=== PATIENT | female | born 1985 | race Caucasian/White ===

== ENCOUNTER 2018-01-20 18:34 | Day surgery (SDC) | payer BC ==
--- NOTE | 2018-01-20 19:14 | EDM.PDOC ---
ED HPI GENERAL MEDICAL PROBLEM - General Chief Complaint: ENT Problem Stated Complaint: FISH BONE STUCK IN THROAT Time Seen by Provider: 01/20/18 18:57 Source of Information: Reports: Patient, Family () History Limitations: Reports: No Limitations - History of Present Illness INITIAL COMMENTS - FREE TEXT/NARRATIVE: The patient states that she ate walleye fish when she went out to dinner last night, 01/19/2018. The fish contained bones. She did not have any problem while eating, but when she got home around 21:00, she had the sensation of a foreign body stuck in her upper left throat. The sensation was still there this morning , albeit somewhat lower. She states that she has tried olive oil, marshmallows, and peanut butter, with no relief. No prior similar symptoms. The patient's last oral solid food was around 17:30. The patient does not have a PCP. Her Research Chef is Dr. Ward. Throat Pain Score (Numeric/FACES): 1 - Related Data Allergies Allergy/AdvReac Type Severity Reaction Status Date / Time No Known Allergies Allergy Verified 05/01/14 14:43 Home Meds: Home Meds . [No Known Home Meds] 01/20/18 [History] Past Medical History HEENT History: Reports: Allergic Rhinitis - Past Surgical History HEENT Surgical History: Reports: Oral Surgery ([place] teeth extraction. Gingival graft.) Social & Family History - Tobacco Use Smoking Status *Q: Never Smoker Second Hand Smoke Exposure: No - Alcohol Use Alcohol Use History: Yes Days Per Week of Alcohol Use: 0 Alcohol Use Frequency: Socially - Recreational Drug Use Recreational Drug Use: No - Living Situation & Occupation Living situation: Reports: , with Spouse, with Family (3 kids) ED ROS ENT - Review of Systems Review Of Systems: ROS reveals no pertinent complaints other than HPI. ED EXAM, ENT - Physical Exam Exam: See Below Exam Limited By: No Limitations General Appearance: Alert, WD/WN, No Apparent Distress Eye Exam: Bilateral Eye: Normal Inspection Ears: Normal External Exam, Hearing Grossly Normal Nose: Normal Inspection, No Blood Mouth/Throat: Normal Inspection, Normal Gums, Normal Lips, Normal Oropharynx, Normal Teeth Head: Atraumatic, Normocephalic Neck: Normal Inspection, Supple, Non-Tender, Full Range of Motion. No: Lymphadenopathy (L), Lymphadenopathy (R) Course - Vital Signs Last Recorded V/S: Last Vital Signs Temp 36.9 C 01/20/18 23:30 Pulse 74 01/20/18 23:15 Resp 16 01/20/18 23:30 BP 123/81 01/20/18 23:30 Pulse Ox 98 01/20/18 23:30 - Orders/Labs/Meds Orders: Active Orders 24 hr Category Date Time Status Communication Order [RC] ROUTINE Care 01/20/18 22:15 Active Cooling Warming Measures [RC] ASDIRECTED Care 01/20/18 22:15 Active Notify Provider [RC] ASDIRECTED Care 01/20/18 22:15 Active Oxygen Therapy [RC] ASDIRECTED Care 01/20/18 22:15 Active Pulse Oximetry [RC] ASDIRECTED Care 01/20/18 22:15 Active Ready for Discharge [RC] PER UNIT ROUTINE Care 01/20/18 23:06 Active Vital Signs [RC] Q15M Care 01/20/18 22:15 Active Neck Soft Tissue [CR] Stat Exams 01/20/18 19:08 Taken HCG QUALITATIVE,URINE [URCHEM] Stat Lab 01/20/18 22:00 Ordered Schedule Procedure [COMM] Urgent Oth 01/20/18 21:41 Ordered Labs: Laboratory Tests 01/20/18 Range/Units 22:00 Urine HCG, Qual Negative (NEGATIVE) Meds: Medications Discontinued Medications Generic Name Dose Route Start Last Admin Trade Name Palq PRN Reason Stop Dose Admin Fentanyl Confirm 01/20/18 21:34 Sublimaze Administered 01/20/18 21:35 Dose 100 mcg .ROUTE .STK-MED ONE Fentanyl 50 mcg 01/20/18 22:15 Sublimaze IVPUSH Q5M PRN Pain Lactated Ringer's Confirm 01/20/18 21:21 01/20/18 21:42 Ringers, Lactated Administered 01/20/18 21:22 50 mls/hr Dose Administration 1,000 mls @ as directed .ROUTE .STK-MED ONE Lidocaine HCl Confirm 01/20/18 21:34 Xylocaine-Mpf 1% Administered 01/20/18 21:35 Dose 4 mls @ as directed .ROUTE .STK-MED ONE Midazolam HCl Confirm 01/20/18 21:35 Versed 1 Mg/Ml Administered 01/20/18 21:36 Dose 2 mg .ROUTE .STK-MED ONE Ondansetron HCl 4 mg 01/20/18 22:15 Zofran IVPUSH ONETIME PRN Nausea/Vomiting Propofol Confirm 01/20/18 21:34 Diprivan 20 Ml Administered 01/20/18 21:35 Dose 200 mg .ROUTE .STK-MED ONE Succinylcholine Chloride Confirm 01/20/18 22:06 Succinylcholine In Ns Pf Administered 01/20/18 22:07 Dose 100 mg .ROUTE .STK-MED ONE - Re-Assessments/Exams Free Text/Narrative Re-Assessment/Exam: 01/20/18 19:35 2-view radiographs of the soft tissue of the neck appear to be normal. No foreign body, such as a fishbone, identified. Formal read per the Radiologist pending. 01/20/18 19:[address] Oates at 19:40. He will come to the ED to evaluate the patient. 01/20/18 21:05 Dr. Oates has evaluated the patient and will take her to the OR [facility] for upper endoscopy. Departure - Departure Time of Disposition: 21:05 Disposition: DC/Tfer to Critical Access 66 Condition: Good Clinical Impression: Foreign body sensation in throat - Discharge Information - My Orders Last 24 Hours: My Active Orders 01/20/18 19:08 Neck Soft Tissue [CR] Stat - Assessment/Plan Last 24 Hours: My Active Orders 01/20/18 19:08 Neck Soft Tissue [CR] Stat
[2018-01-20] MEDS ORDERED: Lactated Ringers 1,000 ML IV SCH (21:21)
[2018-01-20] MEDS ORDERED: Lactated Ringers 1,000 ML ONE (21:21)
--- NOTE | 2018-01-20 21:22 | PCM.PREANE ---
Preanesthetic Assessment - Anesthesia/Transfusion/Family Hx Anesthesia History: Prior Anesthesia Without Reaction Family History of Anesthesia Reaction: No Transfusion History: No Prior Transfusion(s) Intubation History: Unknown - Review of Systems General: No Symptoms Pulmonary: No Symptoms Cardiovascular: Palpitations (occasional) Gastrointestinal: No Symptoms (Gerd on occasion with spicy food) Neurological: Headache (cluster/sinus headaches), Numbness (right leg from vein stripping surgery) Other: Reports: Sinus Problem (allergic rhinitis) - Physical Assessment NPO Status Date: 01/20/18 NPO Status Time: 17:30 Pulse: 79 O2 Sat by Pulse Oximetry: 99 Respiratory Rate: 18 Blood Pressure: 119/91 Temperature: 36.8 C Vital Signs: Last Vital Signs Temp 36.8 C 01/20/18 18:40 Pulse 79 01/20/18 18:40 Resp 18 01/20/18 18:40 BP 119/91 H 01/20/18 18:40 Pulse Ox 99 01/20/18 18:40 Height: 1.78 m Weight: 68.039 kg ASA Class: 1E Mental Status: Alert & Oriented x3 Airway Class: Mallampati = 2 Dentition: Reports: Normal Dentition, Caries Thyro-Mental Finger Breadths: 3 Mouth Opening Finger Breadths: 3 ROM/Head Extension: Full Lungs: Clear to Auscultation, Normal Respiratory Effort Cardiovascular: Regular Rate, Regular Rhythm, No Murmurs - Allergies Allergies/Adverse Reactions: Allergies Allergy/AdvReac Type Severity Reaction Status Date / Time No Known Allergies Allergy Verified 05/01/14 14:43 - Anesthesia Plan Pre-Op Medication Ordered: None - Acknowledgements Anesthesia Type Planned: General Anesthesia, MAC Pt an Appropriate Candidate for the Planned Anesthesia: Yes Alternatives and Risks of Anesthesia Discussed w Pt/Guardian: Yes Pt/Guardian Understands and Agrees with Anesthesia Plan: Yes PreAnesthesia Questionnaire HEENT History: Reports: Allergic Rhinitis - Past Surgical History HEENT Surgical History: Reports: Oral Surgery ([place] teeth extraction. Gingival graft.) - SUBSTANCE USE Smoking Status *Q: Never Smoker Second Hand Smoke Exposure: No Days Per Week of Alcohol Use: 0 Recreational Drug Use History: No - HOME MEDS Home Medications: Home Meds . [No Known Home Meds] 01/20/18 [History] - CURRENT (IN HOUSE) MEDS Current Meds: Current Medications Discontinued Medications Lactated Ringer's (Ringers, Lactated) Confirm Administered Dose 1,000 mls @ as directed .ROUTE .[facility] ONE Stop: 01/20/18 21:22
--- NOTE | 2018-01-20 21:24 | PCM.HP ---
H&P History of Present Illness - General Date of Service: 01/20/18 Admit Problem/Dx: rule out esophageal foreign body Source of Information: Patient History Limitations: Reports: No Limitations - History of Present Illness Initial Comments - Free Text/Narative: 32 yo female, presents with a sensation of a foreign body in her esophagus, which has been present since last night after eating fish. She notes that pain was initially in the LEFT neck region, but has moved to midline. Pain is mild, rated 2/10. She has been able to swallow her own saliva and also swallow food, without difficulty. She attempted eating marshmallow to help remedy the problem , but no changes in symptoms. Swallowing doesn't make the pain worse. No prior history of swallowing problems. Denies nausea/emesis. Denies CP/SOB/cough. Her last meal was at 12:30 PM today (over 8 hours ago). She did have a marshmallow at 5 PM (4 hours ago). Throat Pain Score (Numeric/FACES): 1 - Related Data Allergies/Adverse Reactions: Allergies Allergy/AdvReac Type Severity Reaction Status Date / Time No Known Allergies Allergy Verified 05/01/14 14:43 Home Medications: Home Meds . [No Known Home Meds] 01/20/18 [History] Past Medical History HEENT History: Reports: Allergic Rhinitis - Past Surgical History HEENT Surgical History: Reports: Oral Surgery ([place] teeth extraction. Gingival graft (1 year ago).) Dermatological Surgical History: Reports: Other (See Below) (Removal of skin lump from RIGHT thigh) - History Comment History Comment: She takes daily OCP. Social & Family History - Tobacco Use Smoking Status *Q: Never Smoker Second Hand Smoke Exposure: No - Caffeine Use Caffeine Use: Reports: Coffee - Alcohol Use Alcohol Use History: Yes Days Per Week of Alcohol Use: 0 (rare use) - Recreational Drug Use Recreational Drug Use: No - Living Situation & Occupation Living situation: Reports: , with Spouse, with Family (3 kids) H&P Review of Systems - Review of Systems: Review Of Systems: See Below General: Reports: No Symptoms Pulmonary: Reports: No Symptoms Cardiovascular: Reports: No Symptoms Gastrointestinal: Reports: No Symptoms Musculoskeletal: Reports: No Symptoms Neurological: Reports: No Symptoms Exam - Exam Exam: See Below - Vital Signs Vital Signs: Last Vital Signs Temp 36.8 C 01/20/18 18:40 Pulse 79 01/20/18 18:40 Resp 18 01/20/18 18:40 BP 119/91 H 01/20/18 18:40 Pulse Ox 99 01/20/18 18:40 Weight: 68.039 kg - Exam General: Alert, Oriented, Cooperative. No: Mild Distress HEENT: Conjunctiva Clear Neck: Supple, Trachea Midline. No: Lymphadenopathy Lungs: Clear to Auscultation, Normal Respiratory Effort Cardiovascular: Regular Rate, Regular Rhythm, Normal S1, Normal S2 GI/Abdominal Exam: Soft, Non-Tender Extremities: Normal Inspection Skin: Warm, Dry Psychiatric: Alert, Normal Affect, Normal Mood - Problem List (1) Esophageal foreign body SNOMED Code(s): 17684955 ICD Code: T18.108A - UNSP FOREIGN BODY IN ESOPHAGUS CAUSING OTH INJURY, INIT Status: Acute Current Visit: Yes Qualifiers: Encounter type: initial encounter Qualified Code(s): T18.108A - Unspecified foreign body in esophagus causing other injury, initial encounter Problem List Initiated/Reviewed/Updated: Yes Orders Last 24hrs: Active Orders 24 hr Category Date Time Status Neck Soft Tissue [CR] Stat Exams 01/20/18 19:08 Taken Assessment/Plan Comment:: Mrs. Angeles (pronounced "[id number]") is a 32 yo female, otherwise healthy, who presents with possible esophageal foreign body (fish bone). No concern for esophageal perforation at this time. No obvious bone on cervical spine plain film. - Recommend endoscopy to further evaluate, with possible removal of esophageal foreign body. Indications, risks, and benefits were discussed in detail. Risks include bleeding, infection, damage to the gastrointestinal tract, aspiration, and need for additional procedures. - Plan to perform under general anesthesia with intubation to protect the airway. - Obtain urine hCG, which was negative. Dev Jean M.D., F.A.C.S. General Surgery Pager: [phone]
[2018-01-20] MEDS ORDERED: Propofol 200 MG/20 ML SDV ONE (21:34)
[2018-01-20] MEDS ORDERED: Lidocaine 1% 4 ML ONE (21:34)
[2018-01-20] MEDS ORDERED: fentaNYL 100 MCG/2 ML SDV ONE (21:34)
[2018-01-20] MEDS ORDERED: Midazolam 1 MG/ML 2 ML SDV ONE (21:35)
[2018-01-20] MEDS ORDERED: Succinylcholine/Normal Saline 100 MG/5 ML Syringe ONE (22:06)
[2018-01-20] MEDS ORDERED: fentaNYL 100 MCG/2 ML SDV IVPUSH PRN (22:15)
[2018-01-20] MEDS ORDERED: Ondansetron 4 MG/2 ML SDV IVPUSH PRN (22:15)
--- NOTE | 2018-01-20 22:48 | PCM.POSTAN ---
POST ANESTHESIA ASSESSMENT - MENTAL STATUS Mental Status: Alert - VITAL SIGNS Pulse Rate: 90 SaO2: 98 Resp Rate: 8 Blood Pressure: 125/79 Temperature: 36.9 C - RESPIRATORY Respiratory Status: Respiratory Rate WNL, Airway Patent, O2 Saturation Stable - CARDIOVASCULAR CV Status: Pulse Rate WNL, Blood Pressure Stable - GASTROINTESTINAL GI Status: No Symptoms - POST OP HYDRATION Hydration Status: Adequate & Stable
--- NOTE | 2018-01-20 22:55 | PCM.PRGIU ---
Upper GI Endoscopy Procedure - Diagnosis (1) S/P endoscopy Current Visit: Yes Status: Acute SNOMED Code(s): 368967872, [id number], [id number] Upper GI Endoscopy: Esophagogastroduodenoscopy (EGD) (Upper endoscopy with esophagoscopy and gastroscopy) Procedure Comments:: The scope was advanced through the mouth, through the esophagus, and into the stomach. There was no evidence of abnormalities in the stomach. There were no foreign bodies seen in the esophagus. There was no evidence of esophageal injury. Photos were taken and printed. Dev Jean M.D., F.A.C.S. General Surgery Pager: [phone] Performed By:: Dev Jean Referred By:: Edgar Duvall Date of Service:: 01/20/18 Informed Consent Obtained?: Yes Indications:: Reports: UGI Foreing Body (Concern for esophageal foreign body ( fish bone)) Sedation:: Reports: Anesthesia (GETA by anesthesia) - Findings Esophagus:: Reports: Normal Stomach:: Reports: Normal - Interventions Cauterization:: Reports: None Foreign body removal:: Reports: None (No evidence of esophageal foreign body. No evidence of esophageal injury.) Biopsy:: Reports: None Polypectomy:: Reports: None Complications:: Reports: None Cultures:: Reports: None - Follow-up Follow-Up:: May follow-up as needed in the General Surgery clinic at [facility]
--- NOTE | 2018-01-20 22:56 | PCM48HPAN ---
Post Anesthesia Note - EVALUATION WITHIN 48HRS OF ANESTHETIC Vital Signs in Normal Range: Yes Patient Participated in Evaluation: Yes Respiratory Function Stable: Yes Airway Patent: Yes Cardiovascular Function Stable: Yes Hydration Status Stable: Yes Pain Control Satisfactory: Yes Nausea and Vomiting Control Satisfactory: Yes Mental Status Recovered: Yes
[2018-01-20 23:54] VITALS: BP 123/81
--- NOTE | 2018-01-21 07:04 | CR ---
Soft tissue neck: Two views of the neck were obtained. Comparison: No previous study. Epiglottis is normal. Aryepiglottic folds are normal. Prevertebral soft tissues are within normal limits. Small calcification within the ligamentum nuchal is seen which is incidental. Cervical spine appears within normal limits. Two small curvilinear calcifications are seen within the supraglottic region and difficult to exclude minimal foreign body versus laryngeal calcification. Impression: 1. Two small curvilinear calcifications within the supraglottic region as noted above. 2. Two-view soft tissue neck exam is otherwise unremarkable. Diagnostic code #3
--- NOTE | 2018-01-22 11:41 | PCM.SN ---
- Free Text/Narrative Note: Patient is s/p upper endoscopy to evaluate for esophageal foreign body, Post- procedure day #2. Patient called the hospital to report persistent sore throat. I called the patient to discuss her symptoms over the phone. Patient is concerned about her sore throat, which is different in nature than from prior to the procedure. She reports pain in the back of her throat and also neck pain. She also reports some chest tightness, which is somewhat improved from yesterday. She has been using vitamin C lozenges to relieve her symptoms. She also reports a few cuts on her lips with some lip swelling. I explained that her symptoms are most likely related to mild trauma during the intubation process and upper endoscopy procedure. Low concern for an esophageal perforation at this time. However, will obtain a CXR to confirm no pleural effusion or pulmonary disease. I reassured her that there is no concern for retained fish bone, as there was no evidence of a foreign body on endosocpy. I will give her a prescription for Cepacol lozenges for symptomatic relief. She may also use OTC ibuprofen/acetaminophen PRN. If symptoms worsen or persistent over the next several days, recommend return tot he hospital.
== END 2018-01-20 23:44 | disposition home or self-care (01) ==
LOC: JD.ED 18:34 → JD.SDS 21:17
PROVIDERS: ATTEND Student in an Organized Health Care Education/Training Program
DX: T18.108A Unspecified foreign body in esophagus causing other injury, initial encounter (principal)
CPT/HCPCS: 43235; 70360; 81025; 99285; J0330; J2250; J3010; J7120; 99284; J2704

== ENCOUNTER 2021-06-23 15:46 | Emergency (ER) | payer BC ==
[2021-06-23 16:26] VITALS: BP 162/90; PULSE 75
[2021-06-23] MEDS ORDERED: Bupivacaine 0.5% 10 ML SDV INJECT ONE (16:42)
--- NOTE | 2021-06-23 16:46 | EDM.PDOC ---
ED HPI GENERAL MEDICAL PROBLEM - General Chief Complaint: Upper Extremity Injury/Pain Stated Complaint: SLIVER UNDER THUMBNAIL Time Seen by Provider: 06/23/21 16:41 Source of Information: Reports: Patient, Family (spouse) History Limitations: Reports: No Limitations - History of Present Illness INITIAL COMMENTS - FREE TEXT/NARRATIVE: 36-year-old female presents to the ED with a sliver coming off a piece of deck that she was sanding wedged underneath her left thumbnail from distal aspect down to the nail matrix. attempted to remove it with a fingernail clipper but was unable to get a hold of the sliver. Injury occurred about 2 hours ago. Onset: Today, Sudden Onset Date: 06/23/21 Onset Time: 14:45 Duration: Minutes: Location: Reports: Upper Extremity, Left (Large wooden sliver underneath her left thumbnail) Quality: Reports: Ache, Throbbing Severity: Moderate Improves with: Reports: None (7 6 or 7 out of 10) Worsens with: Reports: None Context: Reports: Other (While sending a deck piece of wood broke off and went underneath her left thumbnail). 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: Reports: Other (see below) (None.) Left Finger-Thumb Pain Score (Numeric/FACES): 10 - Related Data Allergies Allergy/AdvReac Type Severity Reaction Status Date / Time No Known Allergies Allergy Verified 05/01/14 14:43 Home Meds: Home Meds cephALEXin [Keflex] 500 mg PO Q8H #15 cap 06/23/21 [Rx] norgestrel-ethinyl estradioL [Elinest-28 Tablet] 1 tab PO DAILY 06/23/21 [History] Past Medical History HEENT History: Reports: Allergic Rhinitis - Past Surgical History HEENT Surgical History: Reports: Oral Surgery Dermatological Surgical History: Reports: Other (See Below) - History Comment History Comment: She takes daily OCP. Social & Family History - Tobacco Use Tobacco Use Status *Q: Never Tobacco User - Caffeine Use Caffeine Use: Reports: Coffee - Recreational Drug Use Recreational Drug Use: No - Living Situation & Occupation Living situation: Reports: , with Spouse, with Family (3 kids) Review of Systems - Review of Systems Review Of Systems: See Below Constitutional: Reports: No Symptoms Eyes: Reports: No Symptoms Ears: Reports: No Symptoms Nose: Reports: No Symptoms Mouth/Throat: Reports: No Symptoms Respiratory: Reports: No Symptoms Cardiovascular: Reports: No Symptoms GI/Abdominal: Reports: No Symptoms Genitourinary: Reports: No Symptoms Musculoskeletal: Reports: No Symptoms Skin: Reports: No Symptoms Neurological: Reports: No Symptoms Psychiatric: Reports: No Symptoms ED EXAM, GENERAL - Physical Exam Exam: See Below Exam Limited By: No Limitations General Appearance: Alert, Mild Distress, Other (Temperature is 36.3 degrees. Heart rate 75 and sinus respiratory is 20 with pulse ox of 100% room air. BP 162/90) Eye Exam: Bilateral Eye: Normal Inspection Extremities: Other (Section of her left thumb reveals a piece of wood i.e. sliver that is entered from the distal aspect of the nail and is traveled all the way down the nail matrix to the base of the thumbnail on the radial aspect. Part of the nail has been removed with a clipper by but unable to remove the s) Neurological: Alert ( 2 hours.), Oriented, CN II-XII Intact, Normal Cognition Psychiatric: Anxious, Other (In a lot of discomfort.) Skin Exam: Warm, Dry, Intact, Normal Color, No Rash ED TRAUMA EXTREMITY PROCEDURES - Foreign Body Removal Indication:: Large wood sliver embedded subungual aspect of her left ulnar aspect of her thumb. Attempts by her to remove it failed. He is clipped away a good portion of the distal aspect of the fingernail. The sliver is therefore not exposed enough to be able to grasp with sliver forceps. Consent Obtained: Patient Performing Doctor:: Ricky Pires (Under digital block using bupivacaine 0.5% I will have to wedge resect the ulnar aspect of the fingernail to be able to remove the wood sliver) Foreign Body Other Location Comment:: Large wood sliver subungual aspect of left thumbnail Anesthesia Type: Regional (Digital block using bupivacaine 0.5%) Findings:: I was able to resect most of the ulnar aspect of her thumbnail with a 15 blade and with a good deal of difficulty able to remove the wooden sliver which came out in bits and pieces. Complications:: No Course - Vital Signs Last Recorded V/S: Last Vital Signs Temp 36.3 C 09/05/21 16:24 Pulse 75 06/23/21 16:24 Resp 20 06/23/21 16:24 BP 162/90 H 06/23/21 16:24 Pulse Ox 100 06/23/21 16:24 - Orders/Labs/Meds Meds: Medications Discontinued Medications Generic Name Dose Route Start Last Admin Trade Name Erwin PRN Reason Stop Dose Admin Bupivacaine HCl 10 ml 06/23/21 16:42 06/23/21 16:53 Bupivacaine 0.5% 10 Ml Sdv INJECT 06/23/21 16:43 10 ml ONETIME ONE Administration Cefdinir 300 mg 06/23/21 17:39 06/23/21 17:54 Cefdinir 300 Mg Cap PO 06/23/21 17:40 300 mg ONETIME ONE Administration - Radiology Interpretation Free Text/Narrative:: 36-year-old female presents to the ED with a large wood sliver embedded underneath her left thumbnail from distal aspect of the nail down to the nail matrix. Plan will be to anesthetize her thumb using 0.5% bupivacaine to allow me to resect a portion of the thumbnail to be able to pull the wood sliver out intact. - Re-Assessments/Exams Free Text/Narrative Re-Assessment/Exam: 06/23/21 07:12: 17:45: I had to wedge resect the ulnar aspect of her fingernail using a 15 blade scalpel to remove a large wood sliver completely. She will be placed in a finger cot dressing with bacitracin ointment applied to the exposed aspect of the nailbed. She will be placed on antibiotic cephalexin 500 mg tablet 3 times daily for the next 5 days to prevent secondary infection. She was advised that the fingernail will take the better part of 4 to 6 months to grow out completely. She will use Motrin 400 mg every 6 hours as needed for pain relief. She will follow up with her primary care provider if any further complications arise. Departure - Departure Time of Disposition: 17:40 Disposition: Home, Self-Care 01 Condition: Fair Clinical Impression: Subungual sliver of finger Qualifiers: Encounter type: initial encounter Qualified Code(s): S60.459A - Superficial foreign body of unspecified finger, initial encounter - Discharge Information *PRESCRIPTION DRUG MONITORING PROGRAM REVIEWED*: Not Applicable *COPY OF PRESCRIPTION DRUG MONITORING REPORT IN PATIENT MAIRA: Not Applicable Prescriptions: cephALEXin [Keflex] 500 mg PO Q8H #15 cap Instructions: Sliver Removal, Care After Referrals: PCP,None [Primary Care Provider] - Forms: ED Department Discharge Additional Instructions: Evaluation in the emergency room today in regards to a large long wooden sliver embedded underneath your left thumb nail. I had to remove a good portion of the thumbnail to be able to extract the wood sliver which came out in bits and pieces. Treatment at home is to daily cleanse the wound with soap and water. Showering is okay. Then apply topical antibiotic such as bacitracin or Polysporin on the thumb and cover with bandage for about 5 days or so. The thumb nail will grow out normally over the next 4 months or so. You need to take oral antibiotic cephalexin 500 mg 3 times daily for the next 5 days to prevent secondary wound infection. You were given a dose of similar medicine in the emergency room and you will not need to start the cephalexin until tomorrow.
[2021-06-23] MEDS ORDERED: Cefdinir 300 MG Cap PO ONE (17:39)
== END 2021-06-23 18:03 | disposition home or self-care (01) ==
LOC: JD.ED 15:46
DX: S60.352A Superficial foreign body of left thumb, initial encounter (principal); W45.8XXA Other foreign body or object entering through skin, initial encounter
CPT/HCPCS: 64450; 99282; A9270; J3490; 99283